=== PATIENT | male | born 1990 | race Caucasian/White ===

== ENCOUNTER 2020-06-18 17:34 | Emergency (ER) | payer BC, SELFPAY ==
--- OUTSIDE RECORDS SUMMARY | 2020-06-18 17:36 | XMS REPORT | Continuity of Care Document ---
:1990 Author Organization [facility] t Address [address] [place] [address] [address] [place] [address] Care Team Providers Name Role Phone Pob1, Care Clinic Attending Clinician Unavailable Doctor Unassigned, Name Attending Clinician Unavailable Problems This patient has no known problems. Allergies, Adverse Reactions, Alerts This patient has no known allergies or adverse reactions. Medications This patient has no known medications. Procedures This patient has no known procedures. Encounters Start End Encounter Admission Attending Care Care Encounter Source Date/Time Date/Time Type Type Clinicians Facility Department ID 2020-01-18 2020-01-18 Office Pob1, Acute [facility] [id number] 16:44:33 17:59:52 Visit [facility] [id number] [place] [id number] [place] [id number] [address]al [address] 2020-01-18 2020-01-[address] [id number] 00:00:00 00:00:00 Only Unassigned, ROMIE [id number] [employer] [facility] [id number] Results This patient has no known results.
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
--- NOTE | 2020-06-18 19:04 | RAD REPORT ---
EXAM DESCRIPTION: RAD - Foot Right 3 View - 06/18/2020 6:16 pm CLINICAL HISTORY: PAIN COMPARISON: No comparisons FINDINGS: No acute fracture or dislocation.
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
[2020-06-18 20:17] VITALS: TEMP 98.5
[2020-06-18 20:20] VITALS: BP 118/62; O2SAT 100
== END 2020-06-18 19:41 | disposition home or self-care (01) ==
LOC: ER 17:34
DX: S00.81XA Abrasion of other part of head, initial encounter (principal); S90.31XA Contusion of right foot, initial encounter; V86.55XA Driver of 3- or 4- wheeled all-terrain vehicle (ATV) injured in nontraffic accident, initial encounter; Y93.89 Activity, other specified; Y92.9 Unspecified place or not applicable; Z91.040 Latex allergy status; F17.220 Nicotine dependence, chewing tobacco, uncomplicated
CPT/HCPCS: 70450; 71045; 99285; G0390